=== PATIENT | male | born 1970 | race Caucasian/White ===

== ENCOUNTER 2017-10-09 11:01 | Emergency (ER) | payer MEDICAID ==
[~2017-10-09] VITALS: Ht 182.9 cm; Wt 77.0 kg
[~2017-10-09 11:01] MED LIST: CLIN300C85 PO; DIPH25CA83 PO; HYDR-569 PO; IBUP-1986 PO; MUPI15CR12 TOP; PRED10TA PO
[2017-10-09 12:05] LABS: CLARITY,URINE Clear (Clear); COLOR,URINE Yellow (Yellow); GLUCOSE, URINE Negative (Neg); KETONES,URINE Negative (Neg); LEUKOCYTE ESTERASE ,URINE Trace (Neg); NITRITES, URINE Negative (Neg); OCCULT BLOOD,URINE Negative (Neg); PROTEIN,URINE 30 mg/dl (Neg)
[2017-10-09 12:18] LABS: UA COLLECTION TYPE URINAL
[2017-10-09 12:22] LABS: WBC,URINE 0-4 /HPF (0-4)
[2017-10-09 12:23] LABS: BACTERIA,URINE FEW /HPF (Neg); MUCUS STRANDS MANY /LPF (Neg); RBC,URINE NONE SEEN /HPF (0-2); SQUAMOUS EPITHELIAL CELL,UR FEW /LPF (FEW)
[2017-10-09] MEDS ORDERED: CefTRIAXone 250MG inj IM ONE (12:45)
[2017-10-09] MEDS ORDERED: ibuprofen 200mg tablet PO ONE (12:45)
[2017-10-09] MEDS ORDERED: azithromycin 250mg tablet PO ONE (12:45)
[2017-10-09] MEDS ORDERED: CIPR-230 PO (12:49)
[2017-10-09] MEDS ORDERED: CefTRIAXone 1000mg IM Kit (w/lidocaine diluent) IM ONE (12:55)
[2017-10-09 13:07] VITALS: BP 121/85
== END 2017-10-09 13:13 | disposition home or self-care (01) ==
LOC: ER 11:02
DX: N45.3 Epididymo-orchitis (principal); F12.90 Cannabis use, unspecified, uncomplicated; F15.90 Other stimulant use, unspecified, uncomplicated; Z79.899 Other long term (current) drug therapy
CPT/HCPCS: 36415; 81001; 87088; 87491; 87591; 96372; 99284; J0696